=== PATIENT | female | born 1950 ===

== ENCOUNTER 2022-03-21 11:58 | Outpatient (CLI) | payer MEDICARE ==
[2022-03-21 13:13] LABS: Hemoglobin 13.1 g/dL (12.0-15.5); Mean Corpuscular HGB CONC 33.5 g/dL (32.0-36.0); Mean Corpuscular Volume 89.7 fl (81.6-98.3); Platelet Count 268 10x3/uL (150-450); RBC Distribution Width 14.7 % (11.5-14.5); Red Blood Cell (RBC) Count 4.36 10x6/uL (3.90-5.03); White Blood Cell (WBC) Count 8.2 10x3/uL (3.5-10.5)
[2022-03-21 13:28] LABS: Anion Gap 13 mmol/L (10-20); BUN (Urea Nitrogen) 13 mg/dL (9.8-20.1); Calc. Creatinine Clearance 0 mL/min (70-130); Carbon Dioxide 24 mmol/L (23-31); Chloride 105 mmol/L (98-107); Potassium 4.4 mmol/L (3.5-5.1); Sodium 138 mmol/L (136-145)
[2022-03-21 13:29] LABS: Calcium 8.8 mg/dL (7.8-10.44); Estimated GFR 80; Glucose 119 mg/dL (83-110)
== END 2022-03-21 11:59 | disposition home or self-care (01) ==
LOC: CSHLAB 11:58
PROVIDERS: ATTEND Podiatrist Foot & Ankle Surgery
DX: Z01.812 Encounter for preprocedural laboratory examination (principal); Z20.822 Contact with and (suspected) exposure to COVID-19; M21.612 Bunion of left foot; M20.42 Other hammer toe(s) (acquired), left foot; M77.42 Metatarsalgia, left foot
CPT/HCPCS: 80048; 85027; 87811

== ENCOUNTER 2022-03-24 09:48 | Day surgery (SDC) | payer MEDICARE ==
[2022-03-22 14:18] VITALS: BMI 32.8
[~2022-03-24 09:48] MED LIST: Bupivacaine PF 0.5% 30 ML VIAL ONE; Neomycin-Polymyxin 1 ML AMP ONE
[2022-03-24] MEDS ORDERED: Metoprolol Tartrate 5 MG/5 ML VIAL ONE (10:49)
[2022-03-24] MEDS ORDERED: PROPOFOL 20 ML ONE (11:40)
[2022-03-24] MEDS ORDERED: Fentanyl 100 MCG/2 ML VIAL ONE (11:40)
[2022-03-24] MEDS ORDERED: Lidocaine 2% PF 5 ML VIAL ONE (11:40)
[2022-03-24] MEDS ORDERED: Ondansetron PF 4 MG/2 ML Vial ONE (11:40)
[2022-03-24] MEDS ORDERED: CEFAZOLIN 2 GM VIAL ONE (12:02)
[2022-03-24] MEDS ORDERED: Midazolam HCl 2 mg/2 ml Vial ONE (12:08)
[2022-03-24] MEDS ORDERED: Famotidine/PF 20 mg/2ml Vial ONE (12:08)
[2022-03-24] MEDS ORDERED: Ropivacaine 0.2% 550 ML 550 ML NERVE BLCK SCH (12:30)
[2022-03-24] MEDS ORDERED: Ondansetron PF 4 MG/2 ML Vial IVP PRN (12:30)
[2022-03-24] MEDS ORDERED: Zolpidem Tartrate 5 MG TAB PO PRN (12:30)
[2022-03-24] MEDS ORDERED: Promethazine HCl 25 MG/ML VIAL IM PRN (12:30)
[2022-03-24] MEDS ORDERED: ePHEDrine Sulfate 50 MG/10 ML VIAL ONE (12:40)
[2022-03-24] MEDS ORDERED: Dexamethasone 20 MG/5 ML VIAL ONE (12:41)
[2022-03-24] MEDS ORDERED: PHENYLEPHRINE-NS 100 MCG/ML 10 ML SYRINGE ONE (13:07)
[2022-03-24] MEDS ORDERED: Bupivacaine PF 0.5% 30 ML VIAL ONE (14:50)
== END 2022-03-24 16:30 | disposition home or self-care (01) ==
LOC: CSHSDC 09:48
PROVIDERS: ATTEND Podiatrist Foot & Ankle Surgery
PROC: 0SGN0JZ Fusion of Left Metatarsal-Phalangeal Joint with Synthetic Substitute, Open Approach (ICD-10-PCS; principal; 2022-03-24)
PROC: 0SGQ0JZ Fusion of Left Toe Phalangeal Joint with Synthetic Substitute, Open Approach (ICD-10-PCS; 2022-03-24)
PROC: 0QSP04Z Reposition Left Metatarsal with Internal Fixation Device, Open Approach (ICD-10-PCS; 2022-03-24)
PROC: 0QBP0Z2 Excision of Left Metatarsal, Sesamoid Bone(s) 1st Toe, Open Approach (ICD-10-PCS; 2022-03-24)
DX: M20.12 Hallux valgus (acquired), left foot (principal); M77.42 Metatarsalgia, left foot; M20.42 Other hammer toe(s) (acquired), left foot; M25.572 Pain in left ankle and joints of left foot
CPT/HCPCS: 28285 ×2; 28299; 28309; 28750; 73620; A4306; C1713 ×3; C1776; J0690; J1100; J2001; J2250; J2405; J2704; J2795; J3010; S0020; S0028